=== PATIENT | male | born 1960 | race Caucasian/White ===

== ENCOUNTER 2017-06-14 10:08 | Emergency (ER) | payer SELFPAY | END 2017-06-14 10:34 | disposition home or self-care (01) | LOC: SCSER 10:08 | DX: K64.9 Unspecified hemorrhoids (principal); I10 Essential (primary) hypertension; F17.290 Nicotine dependence, other tobacco product, uncomplicated; Z71.6 Tobacco abuse counseling | CPT/HCPCS: 99406 ==

== ENCOUNTER 2018-10-15 11:08 | Outpatient (CLI) | payer OTHER ==
--- NOTE | 2018-10-15 11:24 | RAD ---
RADIOGRAPH CHEST 2 VIEWS: DATE: 10/15/2018 HISTORY: 58-year-old male with dyspnea. FINDINGS: There is no airspace density, pulmonary edema, pleural effusion, pneumothorax, or cardiomegaly. Dorsa l column stimulator leads with distal tips at mid thoracic spine. IMPRESSION: No acute cardiopulmonary findings.
== END 2018-10-15 11:09 | disposition home or self-care (01) ==
LOC: BICRAD 11:08
PROVIDERS: ATTEND Nurse Practitioner Family
DX: R06.00 Dyspnea, unspecified (principal); I10 Essential (primary) hypertension
CPT/HCPCS: 71046

== ENCOUNTER 2019-02-02 14:03 | Inpatient (IN) | payer SELFPAY ==
[2019-02-02] MEDS ORDERED: Nitroglycerin 2% Ointment 1 INCH/1 GM Packet ONE (14:28)
[2019-02-02 14:53] LABS: #Basophils 0.1 thou/uL (0.0-0.2); #Eosinphils 0.1 thou/uL (0.0-0.7); #Lymphocytes 1.2 thou/uL (1.20-3.40); #Monocytes 0.6 thou/uL (0.11-0.59); #Neutrophils 5.2 thou/uL (1.40-6.50); %Basophils 1.2 % (0.0-1.0); %Lymphocytes 17.1 % (21.0-51.0); %Monocytes 8.4 % (0.0-10.0); %Neutrophils 72.3 % (42.0-75.0); Hemoglobin 16.1 g/dL (14.0-18.0); Mean Corpuscular HGB CONC 33.8 g/dL (32.0-36.0); Mean Corpuscular Hemoglobin 28.9 pg (27.0-31.0); Mean Corpuscular Volume 85.6 fL (78.0-98.0); Mean Platelet Volume 7.8 fL (7.4-10.4); Platelet Count 154 thou/uL (130-400); RBC Distribution Width 12.1 % (11.5-14.5); Red Blood Cell (RBC) Count 5.57 mill/uL (4.70-6.10); White Blood Cell (WBC) Count 7.2 thou/uL (4.8-10.8)
[2019-02-02 15:07] LABS: ALT (SGPT) 18 U/L (8-55); AST (SGOT) 16 U/L (5-34); Albumin 4.2 g/dL (3.5-5.0); Alkaline Phosphatase 79 U/L (40-110); Anion Gap 14 mmol/L (10-20); BUN (Urea Nitrogen) 20 mg/dL (8.4-25.7); Bilirubin, Total 0.6 mg/dL (0.2-1.2); CK (CPK) 89 U/L (30-200); Calc. Creatinine Clearance 0 mL/min (70-130); Calcium 9.5 mg/dL (7.8-10.44); Carbon Dioxide 25 mmol/L (22-29); Chloride 103 mmol/L (98-107); Estimated GFR-MDRD Greater than 90; Globulin 2.7 g/dL (2.4-3.5); Glucose 112 mg/dL (70-105); Lipase 16 U/L (8-78); Potassium 3.8 mmol/L (3.5-5.1); Protein, Total 6.9 g/dL (6.0-8.3); Sodium 138 mmol/L (136-145)
--- NOTE | 2019-02-02 15:08 | CT ---
CT BRAIN WITHOUT CONTRAST: Date: 02/02/19 HISTORY: Altered mental status. COMPARISON: 05/15/15. FINDINGS: No evidence of acute infarct, hemorrhage, midline shift, or abnormal extra-axial fluid collections ar e seen. The ventricular size is appropriate and the basilar cisterns are patent. The bony calvarium i s intact. The visualized paranasal sinuses and mastoid air cells are well aerated. IMPRESSION: No CT evidence of acute intracranial process. POS: [facility]
[2019-02-02] MEDS ORDERED: Aspirin Chewable 81 MG TAB ONE (15:12)
[2019-02-02] MEDS ORDERED: Labetalol HCl 100 MG/20 ML VIAL ONE (15:12)
--- NOTE | 2019-02-02 17:13 | RAD ---
PORTABLE CHEST ONE VIEW: Date: 02-02-19 Time: 2:55 p.m. History: Chest pain FINDINGS: Comparison is made with exam of 10-15-18. The heart size is normal. The lungs are expanded without focal areas of consolidation, pneumothoraces or pleural effusions. IMPRESSION: No acute process. POS: [facility]
[2019-02-02 18:22] VITALS: BMI 29.9
[2019-02-02] MEDS ORDERED: Morphine 2 MG/ML SYRINGE SLOW IVP PRN (18:26)
[2019-02-02 18:28] LABS: Troponin I Less than 0.010 ng/mL (< 0.028)
[2019-02-02] MEDS: Acetaminophen 325 MG TAB PO PRN (18:58)
[2019-02-02] MEDS ORDERED: Senokot S 8.6-50 MG TAB PO PRN (19:54)
[2019-02-02] MEDS ORDERED: Sodium Chloride 0.9% 1,000 ML IV SCH (20:00)
[2019-02-02] MEDS: Famotidine 20 MG TAB PO SCH (20:22)
[2019-02-02 21:21] LABS: Troponin I 0.012 ng/mL (< 0.028)
--- NOTE | 2019-02-02 21:48 | HP ---
PRIMARY CARE PHYSICIAN: Kaila Bae, DNP, [employer] in [place]. CHIEF COMPLAINT: Headache. HISTORY OF PRESENT ILLNESS: Mr. Capone is a 58-year-old man who reported to the emergency room in [place] today reporting a headache that started yesterday and today it was worse with left-sided paresthesia. Family notes that the patient's legs have been weak and he has been stumbling. Denies any chest pain, shortness of breath. Does report some photophobia. Denies any vomiting, although he does report some nausea. Reports not taking his blood pressure medicine that has been prescribed for him in the last several months. He does report a history of what he calls migraine headaches that are similar to the one he has had today, but reports this one is worse. Reports that he usually gets nauseated with those headaches, he throws up and then he feels better. Reports that he did vomit once this morning, but not a whole lot, and it did not really help his headache. When he got to the emergency room today, his blood pressure was 224/118. He got some aspirin, labetalol, morphine, and some transdermal nitro, and his blood pressure when he was sent to [facility] for admission was 163/97. He had a brain CT while over at [facility] that had no evidence of any acute process. The patient's laboratory values; glucose at 112. Troponin x2 are undetectable. The rest of his labs were unremarkable. Based on the headache that is not resolved, the left arm paresthesias, weakness, the patient was admitted to the stroke unit for further evaluation. REVIEW OF SYSTEMS: The patient reports a headache. Reports some altered mental status. Reports some left-sided paresthesia. Reports some nausea and vomiting. Denies any belly pain, constipation, or diarrhea. All other systems are reviewed and are negative unless mentioned in the HPI. PAST MEDICAL HISTORY: Pertinent for hypertension, which is treated, but the patient is noncompliant. Reports that he did take one of his blood pressure pills this morning. PAST SURGICAL HISTORY: Lumbar fusion x2. PSYCHIATRIC HISTORY: None. SOCIAL HISTORY: The patient dips a can of snuff a day. Denies any alcohol. No smoking history. KNOWN ALLERGIES: None. MEDICATIONS: Home medications that he has been prescribed, but not taking faithfully are lisinopril/hydrochlorothiazide 10/12.5 mg daily. PHYSICAL EXAMINATION: VITAL SIGNS: Blood pressure 163/97, pulse of 62, respirations 16, temp is 98.2, pO2 sats are 99% on room air. CONSTITUTIONAL: The patient appears nontoxic. He does look like he has a headache and he appears photophobic. HEENT: Head is atraumatic and normocephalic. Eyes, pupils are equally round and reactive to light. Extraocular muscles are intact. NECK: Normal range of motion. Trachea is midline. RESPIRATORY/CHEST: Breath sounds are clear. Chest expansion is equal. CARDIOVASCULAR: Regular heart rate and rhythm. Heart sounds are normal. ABDOMEN: Nontender. Bowel sounds are heard. BACK: Normal inspection. No tenderness. EXTREMITIES: Upper extremity; normal inspection. Normal range of motion. Normal strength. Radial pulses are normal. Lower extremity; normal inspection. Normal range of motion. Motor strengths 4/5 bilaterally. Decreased sensation on the left. NEUROLOGIC: The patient is oriented to person, place, and time. Speech is confused, but not slurred. Cranial nerves 2 through 12 are intact. SKIN: Warm, dry, and normal in color. ASSESSMENT AND PLAN: 1. Hypertensive urgency. Although improved while in the ER, the patient still has some headache. I could not find any other neuro specific findings. However, we will obtain an MRI of the brain without contrast tomorrow, echocardiogram, carotid Dopplers, a TIA type of workup based on symptoms [employer]. We will allow some permissive hypertension. 2. Hypertension, treated but noncompliant. We will restart medications once MRI has been resulted. 3. Deep venous thrombosis and gastrointestinal prophylaxis have been started. 4. Hospital course dependent on clinical findings. Job ID: [id number]
[2019-02-02 22:22] LABS: Bacteria/HPF None Seen HPF (None Seen); Bilirubin Negative (Negative); Blood, Urine Negative (Negative); Clarity Clear (Clear); Glucose, Urine (Dipstick) Normal (Negative); Leukocyte Negative Leu/uL (Negative); Nitrite Negative (Negative); Protein, Urine (Dipstick) Negative (Neg-Trace); RBC/HPF 0-3 HPF (0-3); Squamous Epithelial None Seen HPF (0-3); Urobilinogen Normal mg/dL (Less than 2); WBC/HPF 0-3 HPF (0-3)
[2019-02-02 22:25] LABS: Urine Culture Reflex No No
[2019-02-02 22:33] LABS: Amphetamine Not Detected (NotDetected); Barbiturates Screen Not Detected (NotDetected); Benzodiazepine Screen Not Detected (NotDetected); Cocaine Metabolite Screen Not Detected (NotDetected); Medtox Control Line Valid? VALID (VALID); Medtox Reader # READER 4; Methadone Not Detected (NotDetected); Methamphetamine Not Detected (NotDetected); Opiate Screen Detected (NotDetected); Oxycodone Screen Not Detected (NotDetected); Phencyclidine (PCP) Not Detected (NotDetected); THC/Cannabinoid Screen Detected (NotDetected); Tricyclic Screen Not Detected (NotDetected)
[2019-02-02] MEDS ORDERED: Lorazepam 2 MG/ML VIAL SLOW IVP PRN (23:41)
[2019-02-03] MEDS: Acetaminophen 325 MG TAB PO PRN ×5 (03:26→21:31)
[2019-02-03 04:33] LABS: #Eosinphils 0.3 thou/uL (0.0-0.7); #Lymphocytes 1.6 thou/uL (1.20-3.40); #Monocytes 0.5 thou/uL (0.11-0.59); #Neutrophils 2.6 thou/uL (1.40-6.50); %Basophils 0.8 % (0.0-1.0); %Lymphocytes 31.5 % (21.0-51.0); %Monocytes 10.3 % (0.0-10.0); %Neutrophils 52.4 % (42.0-75.0); Hemoglobin 14.1 g/dL (14.0-18.0); Mean Corpuscular HGB CONC 33.2 g/dL (32.0-36.0); Mean Corpuscular Hemoglobin 29.2 pg (27.0-31.0); Mean Platelet Volume 7.1 fL (7.4-10.4); Platelet Count 145 thou/uL (130-400); RBC Distribution Width 12.5 % (11.5-14.5); Red Blood Cell (RBC) Count 4.85 mill/uL (4.70-6.10)
[2019-02-03 04:52] LABS: Anion Gap 11 mmol/L (10-20); BUN (Urea Nitrogen) 18 mg/dL (8.4-25.7); Calc. Creatinine Clearance 137 mL/min (70-130); Calcium 8.8 mg/dL (7.8-10.44); Carbon Dioxide 25 mmol/L (22-29); Cardiac Risk 3.2 (Less than 4.5); Chloride 104 mmol/L (98-107); Cholesterol 134 mg/dl (< 200 Desired); Estimated GFR-MDRD 88; Glucose 97 mg/dL (70-105); HDL Cholesterol 42 mg/dL (>60 Neg Risk); LDL Cholesterol, Calculated 78 mg/dL; Potassium 3.6 mmol/L (3.5-5.1); Sodium 136 mmol/L (136-145); Triglycerides 70 mg/dL (Less than 150)
[2019-02-03] MEDS: Famotidine 20 MG TAB PO SCH (08:43)
[2019-02-03] MEDS ORDERED: Labetalol HCl 100 MG/20 ML VIAL SLOW IVP PRN (08:54)
[2019-02-03] MEDS ORDERED: Enoxaparin Sodium 40 MG/0.4 ML SYRINGE SC SCH (09:00)
[2019-02-03] MEDS ORDERED: FLU VACC QS2019-20(6MOS UP)/PF 60 MCG/0.5 ML SYRINGE IM ONE (09:00)
[2019-02-03] MEDS ORDERED: Carvedilol 3.125 MG TAB PO SCH ×2 (09:15→17:00)
[2019-02-03] MEDS: Lisinopril 10 MG TAB PO SCH ×2 (09:30→21:33)
--- NOTE | 2019-02-03 09:35 | ULT ---
CAROTID ULTRASOUND WITH JESUS SCALE AND DOPPLER DUPLEX COLOR FLOW IMAGING SPECTRAL ANALYSIS PERFORMED: CLINICAL INDICATION: TIA. Left-sided weakness. FINDINGS: There is mild scattered atherosclerotic calcification of the carotid arteries. PEAK SYSTOLIC VELOCITY: Right CCA: 84 cm/s Left CCA: 53 cm/s Right ICA: 41 cm/s Left ICA: 46 cm/s There is antegrade flow within the visualized bilateral vertebral arteries. IMPRESSION: 1. No hemodynamically significant stenosis of the right internal carotid artery. 2. No hemodynamically significant stenosis of the left internal carotid artery. POS: [facility]
--- NOTE | 2019-02-03 17:54 | CON ---
DATE OF TELEMEDICINE CONSULTATION: 02/03/2019 CHIEF COMPLAINT: Headache. HISTORY OF PRESENT ILLNESS: The patient reports he has had headaches. His blood pressure was high and they checked him. He complains of mild weakness and balance problems. Headache is bitemporal headache around the eyes as well, severity 8/ 10. PREVIOUS MEDICAL HISTORY: Hypertension, cardiac problems, and chest pain. PREVIOUS SURGICAL HISTORY: He had a back surgery for his disk at L5-S1 and L3- L4. He had 2 back surgeries. FAMILY HISTORY: Brother from problem with obesity related health issues. Sister is healthy. Mother passed at 72 from cancer and blood clots. Father at 69 from cardiac issues. SOCIAL HISTORY: He is nonsmoker. No alcohol. He dips tobacco. MEDS as noted per chart. REVIEW OF SYSTEMS: PULMONARY: Negative for shortness of breath. GI: Negative for nausea, vomiting, or diarrhea. CARDIAC: Negative for chest pain. OPHTHALMOLOGIC: Negative for vision problems. DERMATOLOGIC: Negative for skin lesions. HEMATOLOGIC: Negative for anemia. NEUROLOGIC: Positive for headache. LABORATORY AND DIAGNOSTIC DATA: Lab workup so far; white count is 5, hemoglobin 14.1, hematocrit 42.6, platelets 145. Chemistry; sodium 136, potassium 3.6, chloride 104, bicarb 25, BUN 18, creatinine 0.88, and glucose 97. Lipid profile is within normal limits. TSH 1.21. His workup so far, carotid Dopplers did not show no acute lesions in the carotid artery. No stenosis was noted. MRI is difficult to tell if he is able to do an MRI due to some implant and spinal cord stimulator is not hooked up and he has a lot of metals per his sister. If they will approve his MRI, he can complete the study. CT did not show any evidence of intracranial process. IMPRESSION AND PLAN: The patient is a 58-year-old man with hypertension and associated mild weakness and balance problems. He also has headache. His current neurological examination is normal. Likely, this is hypertension related transient neurological event rather than a stroke. We are unable to obtain MRI at this time, but we will await for the final word from Radiology. For now, continue aspirin and statin. I will follow up again tomorrow with you. Job ID: [id number] [facility]
[2019-02-03] MEDS ORDERED: Aspirin Chewable 81 MG TAB PO SCH (19:00)
[2019-02-03] MEDS ORDERED: hydrALAZINE 20 MG/ML VIAL SLOW IVP PRN (19:47)
[2019-02-03] MEDS ORDERED: Enalaprilat Dihydrate 1.25 MG/ML VIAL SLOW IVP PRN (19:47)
--- NOTE | 2019-02-03 19:50 | PDOC.HOSPP ---
- Subjective Encounter Date: 02/03/19 Encounter Time: 18:30 Subjective: Patient seen and examined for Acute CVA/HTN urgency. No new focal deficits. Still has RLE weakness. No CP or SOB. No other complaints. No overnight events - Objective Vital Signs & Weight: Vital Signs (12 hours) Temp Pulse Pulse Pulse Resp BP BP 02/03/19 19:18 98.5 F 67 16 02/03/19 15:55 98.0 F 63 16 02/03/19 15:10 62 59 L 164/98 H 02/03/19 12:00 97.8 F 64 13 02/03/19 11:40 62 64 160/104 H 02/03/19 09:30 154/96 H 02/03/19 08:14 97.4 F L 61 16 BP BP Pulse Ox 02/03/19 19:18 190/102 H 94 L 02/03/19 15:55 171/101 H 96 02/03/19 15:10 181/102 H 02/03/19 12:00 158/103 H 98 02/03/19 11:40 186/103 H 02/03/19 09:30 02/03/19 08:14 179/101 H 94 L Weight Weight 239 lb 4 oz I&O: 02/02/19 02/03/19 02/04/19 06:59 06:59 06:59 Intake Total 1 10 Balance 1 10 Result Diagrams: 02/03/19 04:21 02/03/19 04:21 Radiology Reviewed by me: No (Carotid negative) EKG Reviewed by me: Yes (Tele SR) Hospitalist ROS - Review of Systems Respiratory: denies: cough, dry, shortness of breath, hemoptysis, SOB with excertion, pleuritic pain, sputum, wheezing, other Cardiovascular: denies: chest pain, palpitations, orthopnea, paroxysmal noc. dyspnea, edema, light headedness, other - Medication Medications: Active Medications Generic Name Dose Route Start Last Admin Trade Name Freq PRN Reason Stop Dose Admin Acetaminophen 650 mg 02/03/19 08:53 02/03/19 16:52 Tylenol PO 650 mg Q4H PRN Administration Headache/Fever or Mild Pain Lisinopril 10 mg 02/03/19 09:00 02/03/19 09:30 Zestril PO 10 mg BID AROLDO Administration Sodium Chloride 10 ml 02/02/19 19:54 02/03/19 08:43 Flush - Normal Saline IVF 10 ml PRN PRN Administration Saline Flush - Exam General Appearance: NAD Neck: supple, no JVD Heart: RRR, no gallops, no rubs Heart - other findings: no gallops Respiratory: CTAB, no wheezes, no rales, no ronchi Gastrointestinal: soft, non-tender, non-distended, normal bowel sounds Extremities: no cyanosis, no clubbing, no edema Neurological: no new deficit (Mild RLE weakness) Psychiatric: normal affect, A&O x 3 Hosp A/P - Plan DVT proph w/SCDs Acute CVA HTN Urgency CKD 2 Tobacco dep Cannabis abuse PLAN: Start ASA Start Lisinopril 10 mg BID Add Amlodipine Low dose Statins No MRI due to Spinal stimulator Lifestyle modification Await Echo Refusing SQ Lovenox
[2019-02-03] MEDS ORDERED: Atorvastatin Calcium 40 MG TAB PO SCH (21:00)
[2019-02-03] MEDS ORDERED: Amlodipine 5 MG TAB PO SCH ×2 (21:00)
[2019-02-03] MEDS: Atorvastatin Calcium 10 MG TAB PO SCH (21:31)
[2019-02-04] MEDS: Acetaminophen 325 MG TAB PO PRN ×3 (04:12→21:10)
[2019-02-04] MEDS ORDERED: Aspirin 81 mg Enteric Coated Tablet PO SCH ×2 (09:00→21:00)
[2019-02-04] MEDS: Lisinopril 10 MG TAB PO SCH (10:19)
[2019-02-04] MEDS ORDERED: Amlodipine 5 MG TAB PO SCH (11:00)
--- NOTE | 2019-02-04 12:02 | CON ---
DATE OF CONSULTATION: 02/04/2019 CONSULTING PHYSICIAN: Donald Villeda MD REASON FOR CONSULTATION: Hypertension. REASON FOR ADMISSION: Headache. HISTORY OF PRESENT ILLNESS: This is a 58-year-old male with history of hypertension, who came to the hospital with headache. The patient was on lisinopril, hydrochlorothiazide, which was making him feeling dizzy and he stopped the medicine and he was brought to the hospital with headache and was found to have blood pressure of 224/118. No nausea or vomiting. No chest pain. He was also found to be positive for cannabinoids in the urine. No fever or chills reported to me. The patient's blood pressure remains high. The patient's hydrochlorothiazide was stopped and started on lisinopril and blood pressure remains high. Nephrology was consulted. PAST MEDICAL HISTORY: Positive for hypertension. PAST SURGICAL HISTORY: Lumbar fusion. HOME MEDICATIONS: None at this point, but supposed to take hydrochlorothiazide and lisinopril. ALLERGIES: NO KNOWN DRUG ALLERGIES. SOCIAL HISTORY: Lives alone. Denies alcohol, but marijuana is positive. FAMILY HISTORY: No history of any kidney disease. REVIEW OF SYSTEMS: CONSTITUTIONAL: Negative for weight loss or gain, ability to conduct usual activities. SKIN: Negative for rash, itching. EYES: Negative for double vision, pain. ENT/MOUTH: Negative for nose bleeding, neck stiffness, pain, tenderness. CARDIOVASCULAR: Negative for palpitations, dyspnea on exertion, orthopnea. RESPIRATORY: Negative for shortness of breath, wheezing, cough, hemoptysis, fever or night sweats. GASTROINTESTINAL: Negative for poor appetite, abdominal pain, heartburn, nausea, vomiting, constipation, or diarrhea. GENITOURINARY: Negative for urgency, frequency, dysuria, nocturia. MUSCULOSKELETAL: Negative for pain, swelling. NEUROLOGIC/PSYCHIATRIC: Negative for anxiety, depression. ALLERGY/IMMUNOLOGIC: Negative for skin rash, bleeding tendency. PHYSICAL EXAMINATION: GENERAL: Reveals a well-built male, in no apparent distress. VITAL SIGNS: Temperature 98.6, pulse 65, respiratory rate 16, and blood pressure 158/106. HEENT: Atraumatic and normocephalic. Oral mucosa moist. NECK: Supple. CARDIOVASCULAR: S1 and S2. Rate and rhythm regular. RESPIRATORY: Clear. GASTROINTESTINAL: Abdomen is soft. MUSCULOSKELETAL: 1+ edema. DERMATOLOGIC: No skin rash. NEUROLOGIC: Alert and awake. PSYCHIATRIC: Mood and affect normal. LABORATORY DATA: Hemoglobin 14.1. Potassium 3.6, BUN is 18, and creatinine is 0.8. ASSESSMENT AND PLAN: 1. Hypertension from noncompliance and substance abuse. The patient was counseled to take the medication regularly. Agree with holding hydrochlorothiazide due to symptoms and we will increase amlodipine and carvedilol could not be increased due to bradycardia. 2. Bradycardia, cannot increase the carvedilol dose. We will increase amlodipine and we will also increase lisinopril if creatinine is tolerated. 3. Mild hyperkalemia. We will check renin aldosterone level. 4. Edema, controlled. 5. Chronic kidney disease, stage 2. Plan is to increase amlodipine and lisinopril if tolerated. Monitor blood pressure closely and we will check renin aldosterone level. Thank you for the consult. We will follow. Job ID: [id number]
--- NOTE | 2019-02-04 19:51 | PDOC.HOSPP ---
- Subjective Encounter Date: 02/04/19 Encounter Time: 09:30 Subjective: Patient seen and examined for HTN urgency/TIA. No new focal deficits. PLATA +. No other complaints. No overnight events - Objective Vital Signs & Weight: Vital Signs (12 hours) Temp Pulse Resp BP BP BP BP 02/04/19 19:29 98.7 F 73 18 166/101 H 02/04/19 15:49 97.6 F 67 20 177/96 H 02/04/19 12:05 97.8 F 67 19 171/103 H 173/94 H 168/104 H 02/04/19 10:59 68 168/109 H 02/04/19 10:19 193/113 H 02/04/19 08:00 98.6 F 65 16 BP Pulse Ox 02/04/19 19:29 96 02/04/19 15:49 98 02/04/19 12:05 170/111 H 97 02/04/19 10:59 02/04/19 10:19 02/04/19 08:00 158/106 H 96 Weight Weight 239 lb 4 oz I&O: 02/03/19 02/04/19 02/05/19 06:59 06:59 06:59 Intake Total 1 610 240 Balance 1 610 240 Result Diagrams: 02/03/19 04:21 02/03/19 04:21 EKG Reviewed by me: Yes (Tele SR) Hospitalist ROS - Review of Systems Respiratory: denies: cough, dry, shortness of breath, hemoptysis, SOB with excertion, pleuritic pain, sputum, wheezing, other Cardiovascular: denies: chest pain, palpitations, orthopnea, paroxysmal noc. dyspnea, edema, light headedness, other - Medication Medications: Active Medications Generic Name Dose Route Start Last Admin Trade Name Freq PRN Reason Stop Dose Admin Acetaminophen 650 mg 02/03/19 08:53 02/04/19 10:23 Tylenol PO 650 mg Q4H PRN Administration Headache/Fever or Mild Pain Atorvastatin Calcium 10 mg 02/03/19 21:00 02/03/19 21:31 Lipitor PO 10 mg HS AROLDO Administration Sodium Chloride 10 ml 02/02/19 19:54 02/03/19 21:34 Flush - Normal Saline IVF 10 ml PRN PRN Administration Saline Flush Hosp A/P - Plan Acute CVA HTN Urgency CKD 2 Tobacco dep Cannabis abuse HTN heart disease PLAN: Lisinopril and Amlodipine dose increased Cont ASA/Statins Consult Dr Garcia for assistance with BP mngt No MRI due to Spinal stimulator Echo reviewed Refusing SQ Lovenox
[2019-02-04] MEDS: Lisinopril 20 MG TAB PO SCH (21:11)
[2019-02-04] MEDS: Amlodipine 5 MG TAB PO SCH (21:11)
[2019-02-04] MEDS: Atorvastatin Calcium 10 MG TAB PO SCH (21:11)
[2019-02-05] MEDS: Acetaminophen 325 MG TAB PO PRN ×2 (05:10→10:01)
[2019-02-05] MEDS ORDERED: Amlodipine 5 MG TAB PO SCH (09:45)
[2019-02-05] MEDS: Lisinopril 20 MG TAB PO SCH (10:02)
[2019-02-05] MEDS: Amlodipine 5 MG TAB PO SCH (10:05)
--- NOTE | 2019-02-05 11:28 | PRG ---
DATE OF SERVICE: 02/05/2019 SUBJECTIVE: Patient was seen and examined at bedside and overnight events noted. Patient denies any shortness of breath or chest pain or palpitation. No history of nausea or vomiting or diarrhea or fever or chills or cramps. OBJECTIVE: GENERAL: This is a well-built male, in no apparent distress. VITAL SIGNS: Temperature 97.5. Heart rate 78. Respiratory rate 18. Blood pressure 143/84. HEENT: Atraumatic, normocephalic. Oral mucosa is moist NECK: Supple. CARDIOVASCULAR: S1, S2 heard. Rate and rhythm regular. RESPIRATORY: Clear to auscultation. GASTROINTESTINAL: Abdomen is soft. MUSCULOSKELETAL: No tenderness. No edema. DERMATOLOGIC: No skin rash. NEUROLOGIC: Alert and awake and oriented X3. No focal neurologic deficits. Moving all the extremities. PSYCHIATRIC: Mood and affect normal. LABORATORY DATA: Potassium 3.6, BUN is 18, creatinine 0.8. ASSESSMENT AND PLAN: 1. Hypertension, better. We will increase the dose of amlodipine to 10 mg daily. 2. Bradycardia, stable. 3. Mild hyperkalemia. 4. Edema, controlled. 5. Chronic kidney disease stage 2. Labs are stable. We will increase lisinopril and continue on amlodipine. Advised to follow up with the clinic. Job ID: [id number]
--- NOTE | 2019-02-05 11:54 | PDOC.HOSPP ---
- Subjective Encounter Date: 02/05/19 Encounter Time: 10:30 Subjective: Patient seen and examined for HTN urgency/TIA. No new focal deficits. Headache slightly better. No new complaints. No overnight events - Objective Vital Signs & Weight: Vital Signs (12 hours) Temp Pulse Resp BP BP BP Pulse Ox 02/05/19 10:05 143/84 H 02/05/19 10:02 143/84 H 02/05/19 10:01 78 145/84 H 02/05/19 08:30 95 02/05/19 08:24 97.5 F L 78 18 173/92 H 95 02/05/19 03:50 98.3 F 62 16 125/69 94 L 02/05/19 00:00 98.5 F 58 L 18 131/75 93 L Weight Weight 239 lb 4 oz I&O: 02/04/19 02/05/19 02/06/19 06:59 06:59 06:59 Intake Total 610 240 Balance 610 240 Result Diagrams: 02/03/19 04:21 02/03/19 04:21 EKG Reviewed by me: Yes (Tele SR) Hospitalist ROS - Review of Systems Respiratory: denies: cough, dry, shortness of breath, hemoptysis, SOB with excertion, pleuritic pain, sputum, wheezing, other Cardiovascular: denies: chest pain, palpitations, orthopnea, paroxysmal noc. dyspnea, edema, light headedness, other - Medication Medications: Active Medications Generic Name Dose Route Start Last Admin Trade Name Freq PRN Reason Stop Dose Admin Acetaminophen 650 mg 02/03/19 08:53 02/05/19 10:01 Tylenol PO 650 mg Q4H PRN Administration Headache/Fever or Mild Pain Aspirin 81 mg 02/04/19 21:00 02/04/19 21:11 Ecotrin PO 81 mg HS AROLDO Administration Atorvastatin Calcium 10 mg 02/03/19 21:00 02/04/19 21:11 Lipitor PO 10 mg HS AROLDO Administration Lisinopril 20 mg 02/04/19 21:00 02/05/19 10:02 Zestril PO 20 mg BID AROLDO Administration Sodium Chloride 10 ml 02/02/19 19:54 02/05/19 10:03 Flush - Normal Saline IVF 10 ml PRN PRN Administration Saline Flush - Exam General Appearance: NAD Heart: RRR, no gallops Respiratory: CTAB, no rales Gastrointestinal: soft, non-tender, normal bowel sounds Extremities: no edema Hosp A/P - Plan DVT proph w/SCDs Acute CVA(suspected) HTN Urgency CKD 2 Tobacco dep Cannabis abuse Hypertensive heart disease PLAN: Cont current dose of Lisinopril Amlodipine dose adjusted Cont ASA/Statins No MRI due to Spinal stimulator Refusing SQ Lovenox DC in 24 hr if BP stable Outpt [facility]
[2019-02-05 16:28] VITALS: BP 163/89; TEMP 97.9
--- NOTE | 2019-02-05 20:30 | DIS ---
DATE OF ADMISSION: 02/02/2019 DATE OF DISCHARGE: 02/05/2019 DISCHARGE DISPOSITION: Home. FOLLOWUP: Follow up with [facility] on February 08, 2019. ALLERGIES: NO KNOWN DRUG ALLERGIES. DISCHARGE MEDICATIONS: 1. Amlodipine 10 mg daily. 2. Lisinopril 20 mg b.i.d. 3. Clonidine as needed. 4. Aspirin 81 mg daily. 5. Lipitor 10 mg at bedtime. The patient was seen and examined on the day of discharge. Please refer to my progress note for details. INPATIENT MERCURY WASHER: 1. Neurology, Dr. Ramirez. 2. Nephrology, Dr. Garcia for blood pressure management. BRIEF HOSPITAL COURSE: The patient is a 58-year-old male with hypertension, currently noncompliant with any medication, presented to the hospital with intractable headache. His blood pressure in the emergency room was 224/118. He also had bilateral lower extremity weakness along with paresthesias. Please refer to the history and physical dated February 02, 2019 by nurse practitioner, Quin Slaughter for further details. The patient was admitted to the hospital with a diagnosis of hypertensive urgency with suspected CVA. MRI of the brain was not done due to spinal stimulator. He was evaluated by Neurology. Echocardiogram showed ejection fraction 60% to 65% with mild concentric left ventricular hypertrophy. Aortic root was dilated at 4.3 cm. There was also mild mitral regurgitation and mild tricuspid regurgitation. Due to uncontrolled blood pressure, he was seen by Nephrology, Dr. Garcia. Per Dr. Garcia's recommendation, his blood pressure medicines were optimized. His blood pressure earlier today was 143/84. He was advised to follow up with [facility] in next 3 to 4 days with repeat blood pressure. He was advised to monitor blood pressure on a daily basis. Lifestyle modification was emphasized. TEST PENDING AT DISCHARGE: Renin aldosterone and metanephrine level. SIGNIFICANT LABS: Urine drug screen positive for cannabinoid. TSH 1.2. Cortisol 8.2. Fasting lipid showed LDL of 78 with cholesterol 134, triglyceride 70. Creatinine 0.8 with BUN of 18, sodium 136, potassium 3.6. CT scan of the brain was negative for acute findings. Chest x-ray was negative for infiltrate or edema. Carotid Doppler was negative for hemodynamically significant stenosis. Echocardiogram as discussed above. IMPRESSION: 1. Hypertensive urgency. 2. Suspected acute cerebrovascular accident. MRI was not done due to spinal stimulator. 3. Chronic kidney disease, stage 2. 4. Tobacco dependence. 5. Cannabis abuse. 6. Hypertensive heart disease. 7. Dilated aortic root at 4.3 cm. 8. History of medication noncompliance. 9. Chronic low back pain. PLAN: Plan was discussed with the patient in detail. He stated understanding. Job ID: [id number]
[2019-02-06] MEDS ORDERED: Amlodipine 5 MG TAB PO SCH (09:00)
--- NOTE | 2019-02-07 03:30 | PQF ---
Matti Capone MALIK MD [id number] CLINICAL DOCUMENTATION CLARIFICATION FORM: POST DISCHARGE Addendum to original discharge summary date: ____ Late entry note date: __ DATE: 02/07/19 ATTN: Donald Ball Please exercise your independent, professional judgment in responding to the clarification form. Clinical indicators are provided on the bottom of this form for your review Please check appropriate box(s) to clarify if the following diagnosis has been ruled in or ruled out: Hypertensive Encephalopathy [ x ] Ruled in diagnosis [ ] Continue to treat [ x ] Resolved [ ] Ruled out diagnosis [ ] Cannot rule out diagnosis [ ] Other diagnosis [ ] Unable to determine In addition, please specify: Present on Admission (POA): [ x ] Yes [ ] No [ ] Unable to determine For continuity of documentation, please document condition throughout progress notes and discharge summary. Thank You. CLINICAL INDICATORS - SIGNS / SYMPTOMS / LABS ED provider note p1 02/02 Pt presents for evaluation of high blood pressure ED provider note p1 02/02 Historian reports headache, reports mental status changes, reports paresthesias ED provider note p2 02/02 Vital sign BP224/118 ED provider note p2 02/02 Diagnosis: Hypertensive Encephalopathy RISK FACTORS H&P p1 02/02 58-year-old male H&P p1 02/02 Hypertensive Urgency TREATMENTS JUN 16 Nitro-Bid transdermal JUN 16 Labetalol IV (This form is maintained as a part of the permanent medical record) 2014 [email or web address]. All Rights Reserved [email or web address] [not provided] MTDD
[2019-02-08 09:10] LABS: Metanephrine,Plasma <10 pg/mL (0-62); Normetanephrine,Pl 45 pg/mL (0-145)
[2019-02-11 09:11] LABS: Renin Activity 0.56 ng/mL/hr (0.167-5.380)
== END 2019-02-05 18:25 | disposition home or self-care (01) | DRG 65 ==
LOC: SCSER 14:03 → 2SE 15:23 → OBSVTOIN 15:23
PROVIDERS: ADMIT Internal Medicine; ATTEND Internal Medicine
DX: I63.9 Cerebral infarction, unspecified (principal); I67.4 Hypertensive encephalopathy; I16.0 Hypertensive urgency; R20.2 Paresthesia of skin; R40.2362 Coma scale, best motor response, obeys commands, at arrival to emergency department; R40.2142 Coma scale, eyes open, spontaneous, at arrival to emergency department; R40.2252 Coma scale, best verbal response, oriented, at arrival to emergency department; R29.703 NIHSS score 3; N18.2 Chronic kidney disease, stage 2 (mild); F17.200 Nicotine dependence, unspecified, uncomplicated; F12.10 Cannabis abuse, uncomplicated; I13.10 Hypertensive heart and chronic kidney disease without heart failure, with stage 1 through stage 4 chronic kidney disease, or unspecified chronic kidney disease; I08.3 Combined rheumatic disorders of mitral, aortic and tricuspid valves; G89.29 Other chronic pain; M54.5 Low back pain; E87.5 Hyperkalemia; R00.1 Bradycardia, unspecified; Z79.899 Other long term (current) drug therapy; Z28.21 Immunization not carried out because of patient refusal; Z98.1 Arthrodesis status; Z09 Encounter for follow-up examination after completed treatment for conditions other than malignant neoplasm; Z96.82 Presence of neurostimulator; Z91.19 Patient's noncompliance with other medical treatment and regimen; Z91.14 Patient's other noncompliance with medication regimen
CPT/HCPCS: 36415; 36416; 70450; 71045; 80048; 80053; 80061; 80306; 81001; 82088; 82533; 82550; 83690; 83835; 84244; 84443; 84484; 85025; 93005; 93306; 93880; 96374; 96375; J2270

== ENCOUNTER 2020-01-29 15:12 | Outpatient (CLI) | payer OTHER ==
--- NOTE | 2020-01-29 15:53 | RAD ---
2 views left knee: 01/29/2020 COMPARISON: None HISTORY: Disability exam FINDINGS: Mild patellofemoral joint space narrowing with mild posterior patellar osteophyte formation . No acute fracture or dislocation. No knee joint effusion. IMPRESSION: Mild degenerative change.
--- NOTE | 2020-01-29 15:55 | RAD ---
2 views of the lumbar spine: 01/29/2020 COMPARISON: None HISTORY: Disability evaluation FINDINGS: There is an incompletely assessed dorsal column stimulator with leads extending into the re gion of the lower thoracic spine, incompletely imaged. The lead within the soft tissues on the right appears fractured. Posterior fusion hardware is present with bilateral L4 and S1 pedicle screws and vertically oriented interlocking rods. There is anterolisthesis at the L5-S1 level measuring 1.5 cm. There is disc space narrowing with degenerative endplate change at the L4-5 and L5-S1 levels. There is a intervertebral disc device at the L4-5 level. Bilateral laminectomy changes are suspected at the lumbosacral junction. IMPRESSION: Postoperative and degenerative changes as detailed above. One of the spinal stimulating l rowdy appears fractured within the subcutaneous fat as detailed above.
== END 2020-01-29 15:13 | disposition home or self-care (01) ==
LOC: BICRAD 15:12
PROVIDERS: ATTEND Internal Medicine
DX: Z02.71 Encounter for disability determination (principal); M47.816 Spondylosis without myelopathy or radiculopathy, lumbar region; M47.817 Spondylosis without myelopathy or radiculopathy, lumbosacral region; M17.12 Unilateral primary osteoarthritis, left knee; Z98.1 Arthrodesis status; Z98.890 Other specified postprocedural states
CPT/HCPCS: 72100